=== PATIENT | male | born 1960 ===

== ENCOUNTER 2017-09-09 19:31 | Emergency (ER) | payer MEDICARE ==
[2017-09-09 20:21] VITALS: O2SAT 98
--- NOTE | 2017-09-09 21:11 | ED PDOC ---
Arrival/HPI - General Chief Complaint: Lower Extremity Problem/Injury Time Seen by Provider: 09/09/17 21:04 Historian: Patient - History of Present Illness Narrative History of Present Illness (Text): 09/09/17 21:08 Pt is a 56 yr old male who present to the emergency department for flu-like symptoms x 2 days and left foot pain s/p step on nail x 3 weeks ago. Pt states that he was seen [place] [facility] [place] and had an x-ray done and was discharged home. Pt states he feels like he has a fever and is sick. Pt's partner is also in the ED in Bed 1 for flu-like symptoms. Reports diarrhea that occurred today. Denies shortness of breath chest pain, n/v or any other complaints. Pt did not receive Flu vaccination this season. PMD: Dr Hensley Time/Duration: < week Symptom Onset: Gradual Symptom Course: Unchanged Quality: Unable to Describe Severity Level: 2 Activities at Onset: Rest Context: Home Past Medical History - Provider Review Nursing Documentation Reviewed: Yes - Travel History Have you recently traveled outside [place] w/in the past 3 mons?: No - Infectious Disease Hx of Infectious Diseases: None - Psychiatric Hx Substance Use: No - Surgical History Other/Comment: 3 hernia sx - Anesthesia Hx Anesthesia: Yes Hx Anesthesia Reactions: No Hx Malignant Hyperthermia: No Family/Social History - Physician Review Nursing Documentation Reviewed: Yes Family/Social History: Unknown Family HX Smoking Status: Never Smoked Hx Alcohol Use: Yes Frequency of alcohol use: Socially Hx Substance Use: No Allergies/Home Meds Allergies/Adverse Reactions: Allergies No Known Allergies Allergy (Verified 09/09/17 20:32) Home Medications: Home Meds Medication Instructions Recorded Confirmed No Known Home Med 09/09/17 09/09/17 Review of Systems - Review of Systems Constitutional: Normal, Fevers Eyes: Normal ENT: Normal Respiratory: Normal. absent: SOB, Cough Cardiovascular: Normal Gastrointestinal: Normal, Diarrhea. absent: Abdominal Pain, Nausea, Vomiting, Appetite Changes Genitourinary Male: Normal Musculoskeletal: Normal, Arthralgias, Other (left foot pain) Skin: Normal Neurological: Headache Endocrine: Normal Hemo/Lymphatic: Normal Psychiatric: Normal Physical Exam Vital Signs Reviewed: Yes Vital Signs Temp Pulse Resp BP Pulse Ox 09/09/17 23:11 98.8 F 72 17 142/89 98 09/09/17 21:42 99.3 F 09/09/17 20:20 99.3 F 82 18 148/97 H 98 Temperature: Afebrile Blood Pressure: Normal Pulse: Regular Respiratory Rate: Normal Appearance: Positive for: Well-Appearing, Non-Toxic, Comfortable Pain Distress: Mild Mental Status: Positive for: Alert and Oriented X 3 - Systems Exam Head: Present: Atraumatic, Normocephalic Pupils: Present: PERRL Extroacular Muscles: Present: EOMI Conjunctiva: Present: Injected Mouth: Present: Moist Mucous Membranes Pharnyx: Present: ERYTHEMA (mild) Nose (Internal): Present: Normal Inspection. No: Rhinorrhea Neck: Present: Normal Range of Motion Respiratory/Chest: Present: Clear to Auscultation, Good Air Exchange. No: Respiratory Distress, Accessory Muscle Use Cardiovascular: Present: Regular Rate and Rhythm, Normal S1, S2. No: Murmurs Abdomen: No: Tenderness, Distention, Peritoneal Signs Back: Present: Normal Inspection Upper Extremity: Present: Normal Inspection, Normal ROM, NORMAL PULSES, Tenderness (joints). No: Cyanosis, Edema Lower Extremity: Present: Normal Inspection, NORMAL PULSES, Normal ROM, Tenderness (joints). No: Edema, CALF TENDERNESS Neurological: Present: GCS=15, CN II-XII Intact, Speech Normal Skin: Present: Warm, Dry, Normal Color. No: Rashes Lymphatic: No: Cervical Adenopathy, Axillary Adenopathy, Inguinal Adenopathy Psychiatric: Present: Alert, Oriented x 3, Normal Insight, Normal Concentration Medical Decision Making ED Course and Treatment: 09/09/17 21:11 Impression Pt is a 56 yr old male who present to the emergency department for flu-like symptoms and left foot pain s/p stepping on a nail 3 weeks ago. On exam, no indication of puncture wound on left foot, sign of infection or swelling; lungs clear b/l but multiple joint and muscle pain on palpation; Plan Rapid Flu labs Tylenol Assess and Dispo Progress Note Flu Neg Advised supportive care with rest and fluids and motrin for fever and pain See Dr Hensley for f/u VSS on d/c - Lab Interpretations Lab Results: Lab Results 09/09/17 21:15: Influenza Typ A,B (EIA) Negative for flu a/b - Medication Orders Current Medication Orders: Discontinued Medications Acetaminophen (Tylenol 325mg Tab) 650 mg PO STAT STA Stop: 09/09/17 21:07 Last Admin: 09/09/17 21:42 Dose: 650 mg MAR Pain/Vitals Document 09/09/17 21:42 IT (Rec: 09/09/17 21:43 [facility] [place] Vitals Temperature (97.6 F-99.6 F) 99.3 F Temperature Source Oral Disposition/Present on Arrival - Present on Arrival Any Indicators Present on Arrival: Yes History of DVT/PE: No History of Uncontrolled Diabetes: No Urinary Catheter: No History of Decub. Ulcer: No History Surgical Site Infection Following: None - Disposition Have Diagnosis and Disposition been Completed?: Yes Diagnosis: Influenza, Joint pain Disposition: HOME/ ROUTINE Disposition Time: 22:34 Patient Plan: Discharge Condition: STABLE Discharge Instructions (ExitCare): Flu, Adult (DC), Joint Pain Additional Instructions: Raul, thank you for letting us take care of you today. Your provider was GIL Bergman. You were treated for the Flu and bodyaches. The emergency medical care you received today was directed at your acute symptoms. If you were prescribed any medication, please fill it and take as directed. It may take several days for your symptoms to resolve. Return to the Emergency Department if your symptoms worsen, do not improve, or if you have any other problems. You will need to drink plenty of fluids and get rest over the next few days. If you have worsening of symptoms such as a high fever (greater than 103F), return to the emergency department for evaluaton or see Dr Hensley Please contact your doctor or call one of the physicians/clinics you have been referred to that are listed on the Patient Visit Information form that is included in your discharge packet. Bring any paperwork you were given at discharge with you along with any medications you are taking to your follow up visit. Our treatment cannot replace ongoing medical care by a primary care provider (PCP) outside of the emergency department. Thank you for allowing the [facility] team to be part of your care today. If you had an X-Ray or CT scan: A Radiologist will review the ED reading if any change in treatment is needed we will contact you. If you had a blood, urine, or wound culture: It will take several days for the results, if any change in treatment is needed we will contact you. If you had an STI test: It will take 48 hours for the results. Please call after 1 week if you have not heard back. Forms: [place] ([place]rainian)
[2017-09-09 23:12] VITALS: BP 142/89; PULSE 72; RESP 17; TEMP 98.8
== END 2017-09-09 23:11 | disposition home or self-care (01) ==
LOC: ED 19:31
DX: J11.1 Influenza due to unidentified influenza virus with other respiratory manifestations (principal); M25.572 Pain in left ankle and joints of left foot